=== PATIENT | female | born 1990 | race Caucasian/White ===

== ENCOUNTER 2025-01-10 01:00 | Day surgery (SDC) | payer OTHER, SELFPAY ==
[2025-01-01 11:43] VITALS: BMI 23.8
--- NOTE | 2025-01-01 11:50 | PC.NURSE ---
Report to the Outpatient Waiting Room, entrance under the green pavilion located off [facility], at time _0600_ on date _[phone]_. Planned Procedure Time: _0730_.? Time changes happen often and if your time is changed the preop area will call you the afternoon before. - You and your visitor will be asked to self-screen and do not enter if you have any COVID symptoms. Please call surgeon if you need to reschedule. - A mask is optional within the hospital at this time. Patients may have clear liquids (water, carbonated beverages, clear teas, apple juice) until 3 hours prior to surgery with a maximum of 20 ounces. - No food from midnight until time of surgery and no smoking, or chewing tobacco (or any form of nicotine). No chewing gum, candy or mints. Take only the following medications with a SIP of water on the morning of surgery: _None____ DO NOT STOP ANY OF YOUR OTHER PRESCRIPTION MEDICATIONS PRIOR TO SURGERY EXCEPT THE FOLLOWING Hold all vitamins and supplements for 3 days per anesthesiologist. Medications to discontinue per physician Date to take last khal___[phone]___ Please no make-up, nail omani, hairspray, perfume, deodorant, or body powder the day of surgery.? No jewelry (including any body piercings) or valuables the day of surgery, leave them at home.? Please take a shower or bath the night before, or the morning of, surgery with an antibacterial soap.? Wear comfortable, loose fitting clothing.? - Jewelry must be removed prior to entering the operating room.? Rings and piercings that are not removed may be cut off. - The hospital will not accept responsibility for valuables.? - Please leave all valuables, including medications, at home the day of surgery. If you are going home after surgery, a licensed test car driver must drive you home.? - NO public transportation without another adult if you receive anesthesia. - We recommend that an adult stay with you for 24 hours following discharge. - We also recommend that you do not drive, make important decision, drink alcoholic beverages, or take any drugs that were not prescribed by your health care provider for at least 24 hours after your discharge time. Follow any additional instructions given to you from your surgeon. Telephone instructions given to __Mimma__and asked if any additional questions and then verbalized understanding. Patient advised to call surgeon office or pre surgery nurse liaison [phone] if any additional questions.
[2025-01-10] VITALS (11 sets, daily range): BP systolic 108–131; BP diastolic 66–83; PULSE 83–108; RESP 16–20; TEMP 36.8–37.2; O2SAT 99–100
[2025-01-10] MEDS: LACTATED RINGERS 1,000 ML 30 ML IV CONT ×2 (06:30→08:29)
--- NOTE | 2025-01-10 06:52 | P.PNAN_ITS ---
Anes - Initial Pre Proc Eval Procedure: Operation Date: 01/10/25 07:30 Proposed Procedures p Bilateral Breast Augmentation - Michael Ocampo MD Date/Time: 01/10/25 06:52 Surgeon: Michael Ocampo MD Pre Op Diagnosis: micromastia Patient Data Age: 34 Gender: F Height: 1.65 m Weight: 65 kg Allergies Allergy/AdvReac Type Severity Reaction Status Date / Time No Known Allergies Allergy Verified 01/01/25 11:36 Home Medications ?Medication ?Instructions ?Recorded ?Confirmed ?Type cyanocobalamin (vitamin B-12) 5,000 mcg sublingual DAILY 01/01/25 01/01/25 History 5,000 mcg sublingual tablet (Vitamin B-12) ergocalciferol (vitamin D2) 1,250 50,000 unit PO WEEKLY 01/01/25 01/01/25 History mcg (50,000 unit) capsule iodoral 6.25 mg PO HS 01/01/25 01/01/25 History magnesium glycinate 100 mg (as 500 mg PO HS 01/01/25 01/01/25 History glycinate) tablet (Mag Glycinate) organ concentrates 80 mg capsule 160 mg PO DAILY 01/01/25 01/01/25 History valacyclovir 1 gram tablet 2,000 mg PO Q12H PRN cold sores 01/01/25 01/01/25 History Patient hx anesthesia problems: post op nausea/vomiting (Pt reports after colonoscopy at [place]. ) Family hx anesthesia problems: none Results Review: All pre-operative results and documents have been reviewed as part of the pre- operative evaluation. [facility] Social History Social History Smoking status: Never smoker Alcohol intake: current Living arrangements: with family Spiritual care concerns: No Anes - Eval Final PreProcedure Day of Procedure 01/10/25 06:52 Patient weight: normal Lungs: normal air movement Airway: Mallampati scale class II Neurological: alert and oriented Last oral intake: >/= 8 hours ASA classification: I Emergent: no Anesthetic plan: proceed Anesthesia type and monitoring: general LMA and standard monitoring Results Review: All pre-operative results and documents have been reviewed as part of the pre- operative evaluation. Healthy 34 yo female. Informed Consent: The patient's anesthetic plan and its attendant risks and benefits were discussed with the patient/family/POA. Questions were solicited and answers provided to the satisfaction of the patient/family/POA.
--- NOTE | 2025-01-10 07:14 | WPDHPUPDATE1 ---
History and Physical Update Update Date/Time: 01/10/25 07:14 History and Physical has been reviewed, including an updated exam of the patient. There are NO changes in the patient's condition. Risks, benefits, and alternatives have been discussed and questions answered. Patient agrees to proceed with procedure.
--- NOTE | 2025-01-10 07:15 | P.OP_ITS ---
Procedure Note - Detailed Date of Procedure 01/10/25 Pre-op Diagnosis micromastia Post-op Diagnosis Same Procedure Performed Bilateral breast augmentation mammaplasty Surgeon Michael Ocampo MD Anesthesia General Findings Bilateral Chirag Donato Cohesive 440cc Subfascial Right - REF# [id number] SN [id number] Left - REF# [id number] SN [id number] Description of Procedure She is here today for bilateral breast augmentation. Previously and again today the risks, benefits, alternatives were discussed in extensive detail. I wanted her to be very realistic about the risks involved as well as expectations. We discussed aftercare and what to monitor for. Made sure answered all of her questions to her satisfaction today and consent was obtained. Marked in the preoperative holding area with their verification. The patient was taken to the operating room placed supine on the operating table. Anesthesia was provided by anesthesiology. A surgical time-out was taken. We cleansed the skin and 1% lidocaine and 0.25% Marcaine with epinephrine was used anesthetize as a field block. She was prepped and draped in a standard sterile fashion. Tegaderm nipple Shah were placed. A 15 blade used to make an incision along the inframammary fold. Dissection was continued at 45 degree angle until the chest wall as identified. I elevated a subfascial pocket in the appropriate dimensions based on our preoperative planning for the implant. I then copiously irrigated with saline solution and verified a strict hemostasis. Next the use a triple antibiotic and Betadine containing solution to irrigate the pocket. I washed my gloves with the triple antibiotic and Betadine solution. We washed the implant immediately upon opening it with this solution and only opened it when we needed it. I used implant funnel and no-touch technique. The implant was introduced into the pocket using the funnel. Having verified positioning of the implant this was closed using 2-0 PDS followed by 3-0 Monocryl in a running subcuticular 4-0 Monocryl followed by tiss ue glue. Fluffs and surgical bra were placed. Patient was awoke and taken to PACU without difficulty. All instrument sponge counts were correct at the end of the case. Estimated Blood Loss 30 Drains No Packing No Pathology None sent Complications No immediate complications Condition Stable Disposition PACU
[2025-01-10] MEDS: TRANEXAMIC ACID 1,000MG/ISO100 1,000 MG/100 ML BAG 200 MG IVPB (07:25)
[2025-01-10] MEDS: ceFAZolin 2 GM/D5W 50 ML 2 GM/50 ML BAG IVPB (07:25)
[2025-01-10] MEDS: SCOPOLAMINE 1 MG PATCH 1 PATCH TRANSDERM (07:27)
[2025-01-10] MEDS: NACL 0.9% IRRIG POUR BOTTLE 900 ML, GENTAMICIN SULFATE INJ 160 MG, ceFAZolin 2 GM, POVI... IRRIGATION (07:47)
[2025-01-10] MEDS: LIDO 1%/EPINEPHRINE 1:100,000 50 ML VIAL 30 ML INFILTRATE (08:21)
[2025-01-10] MEDS: fentaNYL CITRATE INJ (*CRX) 100 MCG/2 ML VIAL 25 MCG IV PUSH ×4 (08:55→09:30)
[2025-01-10] MEDS: ONDANSETRON INJ 4 MG/2 ML VIAL IV PUSH (09:25)
[2025-01-10] MEDS: oxyCODONE HCL (*CRX) 5 MG TAB IR PO (09:50)
[2025-01-10] MEDS: diphenhydrAMINE HCl INJ 50 MG/ML VIAL 12.5 MG IV PUSH (10:08)
== END 2025-01-10 11:50 | disposition home or self-care (01) ==
PROVIDERS: PCP Family Medicine; Visit Provider Surgery Plastic and Reconstructive Surgery
PROC: (CPT 19325; principal; 2025-01-10 07:30)
DX: Z41.1 Encounter for cosmetic surgery (principal); N64.82 Hypoplasia of breast; E80.4 Gilbert syndrome; Z82.49 Family history of ischemic heart disease and other diseases of the circulatory system
CPT/HCPCS: 19325; A9270; J0690; J1100; J1200; J1580; J2003; J2004; J2250; J2405; J2704; J3010; J7120

== ENCOUNTER 2025-07-10 15:15 | Emergency (ER) | payer OTHER, SELFPAY ==
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
[2025-07-10 15:08] VITALS: BP 123/84; PULSE 113; RESP 12; O2SAT 100
[2025-07-10 15:24] VITALS: BP 123/84; PULSE 117; RESP 18; TEMP 36.8; O2SAT 100
[2025-07-10] MEDS: KETOROLAC 30 MG/ML VIAL (*BKC) IM (15:47)
[2025-07-10] MEDS: CYCLOBENZAPRINE HCL 10 MG TABLET PO (15:47)
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
[2025-07-10 15:55] LABS: BEDSIDEPREGUCG Negative (Negative)
--- OUTSIDE RECORDS SUMMARY | 2025-07-10 16:01 | XMS_ITS | Clinical Summary ---
Author Organization [facility] Address [address] [place] [address] Care Team Providers Care Lifestyle Consultant Name Role Phone Willem Soto MD Primary Care Provider [phone] Willem Soto MD Unavailable [phone] Allergies No known active allergies Medications levonorgestrel (MIRENA) IUD place 1 by Intrauterine route 0 0 5 Active semaglutide (OZEMPIC) 0.25 mg or 0.5 mg(2 mg/1.5 mL) pen injector injection Inject 0.25 mg under the skin every 7 days Active ergocalciferol (VITAMIN D) 50,000 unit capsule Take 1 capsule (50,000 Units total) by mouth 5 Active UNABLE TO FIND adrenal Activ e cyanocobalamin (Vitamin B-12) 100 mcg tabletIndicatio ns:Prevention of Vitamin B12 Deficiency Take 2 tablets (200 mcg total) by mouth daily Active hydrocortisone- pramoxine (PROCTOFOAM-HC) rectal foamIndications :Hemorrhoids,Pr uritus Ani Insert 1 applicator into the rectum 4 (four) times a day 360 g 2 5 Active valACYclovir (Valtrex) 1 gram tablet Take 2 tablets PO at onset of cold sore and then repeat in 12 hours. Total of 4 tablets. 30 tablet 5 Active Active Problems Problem Noted Date Diagnosed Date Annual physical exam 11/26/2024 Assessment & Plan (11/26/2024 10:01 AM INSPECTOR DIALS): In regard to health maintenance, WWE- UTD Influenza vaccine- Declined Eat a healthy diet: focus on lean meats and proteins, more fruits, vegetables and whole grains and low in sugars and fats. Limit red meat and avoid processed meat. Maintain a healthy weight; avoid being overweight. Aim for a normal body mass index (BMI) of 18.5-24.9. Help learning to eat healthier, we can set up appointment with button cutter/air quality technician. Have an active lifestyle, strive for 30 minutes of moderate exercise 5 times a week and strength or resistance training at least twice a week. Use broad-spectrum (UVA+UVB) sunscreen with SPF 30 or greater, is water resistant, limit time spent in the sun (10 am-4pm), wear hat, wear UV protective clothing, wear sunglasses. Never use a tanning bed. Skin that was irradiated may be more sensitive over your lifetime. Limit alcohol intake, 1 drink per day for a woman and 2 drinks per day for a man. Gilbert disease 11/30/2023 Assessment & Plan (11/26/2024 10:01 AM INSPECTOR DIALS): Continues to see Liver specialist PRN. Will do Hida scan to further evaluation liver. Assessment & Plan (11/30/2023 10:40 AM INSPECTOR DIALS): Patient with isolated hyperbilirubemia, predominantly indirect bilirubin. Total bili ranges from 1.2-1.7. Direct bilirubin was normal. US and CBC were normal. Findings consistent with Gilbert's syndrome. I will repeat HFP and fractionated bili. If direct bili is again normal, no further workup needed. I explained to patient that her bili may increase further in times of stress and illness. If she ever appears jaundiced or has any concerns, she is to contact us. For now, no further workup is needed. No treatment is indicated. Cervical high risk HPV (human papillomavirus) te st positive 02/15/2022 Acute left-sided low back pain with left-sided s ciatica 12/13/2021 Assessment & Plan (12/13/2021 11:38 AM INSPECTOR DIALS): Improving; will prescribe low dose prednisone. Aware not to take prednisone with ibuprofen. Discussed gentle stretching and ROM exercises, patient agreeable to PT. Recommended continued ms relaxer use as needed, suggested she take 5 mg nightly. Will continue to monitor. Records from [facility] requested. Encounter for screening for lipid disorder 12/13 Assessment & Plan (12/13/2021 11:38 AM INSPECTOR DIALS): Reviewed 12/2020 lipid panel. Will get fasting labs and notify patient as soon as results are received. BMI 23.0-23.9, adult 12/13/2021 Assessment & Plan (11/26/2024 10:06 AM INSPECTOR DIALS): Weight appropriate for patient. Assessment & Plan (12/13/2021 11:34 AM INSPECTOR DIALS): Discussed healthy diet and importance of regular physical activity. Hematochezia 05/04/2017 Hemorrhoids 05/04/2017 Assessment & Plan (11/26/2024 10:00 AM INSPECTOR DIALS): Will send in Protofoam for hemorrhoid pain PRN. Will continue to monitor. Has seen GI in the past. Advised to start a metamucil or Thompson daily to aid in preventing straining and constipation. 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 x7 days, dispense 14 with no refills; await culture and sensitivity and call office if symptoms persist beyond treatment. Burning with urination 03/24/201702/20 Assessment & Plan (03/26/2017 7:54 PM CDT): Urine dip done; 1+ leukocytes and trace blood; enc discontinuing soda and push water. Bacterial vaginosis 03/24/2017 02/21/20 22 Assessment & Plan (03/27/2017 5:45 PM CDT): Boric Acid capsules, 600 mg, insert 1 capsule per vagina at HS x7 nights; dispense 30 with no refills; call office if symptoms persist beyond treatment; (patient going on vacation to [facility] andwanted to take some extra capsules if possible so that is why 30 were dispensed). No pathologic diagnosis 02/22/201405/2020 Overview (01/11/2017): No diagnosis Encounters Date Type Department Care Team Description 06/13/2025 Results Follow-Up [facility] [address] [place] [address] Harjinder Longoria MD Pap and HPV, reflex to HPV Genotypes 06/10/2025 11:15 AM CDT Office Visit [facility] [address] [place] [address] Harjinder Longoria MD Well woman exam (Primary Dx); Encounter for Papanicolaou cervical smear to confirm findings of recent normal smear following initial abnormal smear; History of abnormal cervical Pap smear from Last 3 Months Immunizations Immunization Administration Dates Next Due Influenza, Unspecified 11/26/2024(Deferr ed: Patient Refused),06/09/2024(Deferred: Patient Refused),11/10/2022(Deferred: Patient Refused),09/26/2022(Deferred: Patient Refused),08/22/2022(Deferred: Patient Refused),06/09/2022(Deferred: Patient Refused),12/13/2021(Deferred: Patient Refused),06/09/2021(Deferred: Patient Refused),06/09/2021(Deferred: Patient Refused),12/14/2020(Deferred: Patient Refused),12/03/2019(Deferred: Patient Refused),10/09/2019(Deferred: Patient Refused),10/09/2018(Deferred: Patient Refused) Surgical History Surgery Date Site/Laterality Comments OTHER SURGICAL HISTORY Severe cervical dysplasia: Resolved spontaneously OTHER SURGICAL HISTORY 10/09/2011 - 10/08/2012 : OTHER SURGICAL HISTORY 10/09/2014 - 10/08/2015 : OTHER SURGICAL HISTORY 10/09/2014 - 10/08/2015 : SECTION INTRAUTERINE DEVICE INSERTION 03/16/2020 Removal and Insertion AUGMENTATION MAMMAPLASTY Within the breast tissue per patient. Medical History Medical History Date Comments Hx Other Medical 2009 Severe cervical dysplasia Hx Other Medical 2011 ; Outc ome: 39 week 7 lb(s) 5 oz Male Hx Other Medical ; Outc ome: 36W4D week 5lb(s) 9 oz Female Hx Other Medical ; Outc ome: 36W4D week 5lb(s) 7 oz Male Nausea Rectal bleeding Family History Medical History Relation Name Comments Crohn's disease Father Colon cancer Father's Brother Crohn's disease Father's Brother Heart disease Maternal Grandfather Kenneth Shafer Heart disease; Diabetes Other 1 Family history of Diabetes mellitus; Hypertension Other 2 Family history of Hypertension; Other Other 3 Family history of Hepatitis B; Hyperlipidemia Other 4 Family histor y of Hyperlipidemia; Heart disease Paternal Grandfather Kenneth Shafer Heart disease; Relation Name Status Comments Father Father's Brother Maternal Grandfather Kenneth Shafer Other 1 Other 2 Other 3 Other 4 Paternal Grandfather Kenneth Shafer Social History Tobacco Use Types Packs/Day Years Used Date Smoking Tobacco: Never Smokeless Tobacco: Never Tobacco Cessation:Counseling Given: Not Answered Alcohol Use Standard Drinks/Week Comments Yes 0 (1 standard drink = 0.6 oz pur e alcohol) PHQ-2 Answer Date Recorded PHQ-2 Total Score (If total score is 3 or more points, staff should administer the PHQ-9) 0 11/26/2024 Comments No Sex and Gender Information Value Date Recorded Sex Assigned at Not on file Legal Sex Female 7:00 AM INSPECTOR DIALS Gender Identity Not on file Sexual Orientation Not on file Obstetrics History Para Term AB IAB SAB Ectopic Multiple Livin g Live Births 2 2 1 1 0 0 0 1 3 2 Date Outcome GA Total Labor Labor/2nd/3rd Weight Sex Type Anes PTL Janice A1 A5 Name Clin 2 Term 39w 0d 3.317 kg (7 lb 5 oz) M Vag-S pont N Living Complications:None 5 36w 4d 2.523 kg (5 lb 9 oz) F Vag-S pont Y Living 5 36w 4d 2.466 kg (5 lb 7 oz) M CS-Un spec Last Filed Vital Signs Vital Sign Reading Time Taken Comments Blood Pressure 122/76 06/10/2025 11:13 AM CDT Pulse 93 11/26/2024 9:35 AM INSPECTOR DIALS Temperature 36.9 C (98.5 F) 03/31/2024 12:05 PM CDT Respiratory Rate 18 11/26/2024 9:35 AM INSPECTOR DIALS Oxygen Saturation 100% 11/26/2024 9:35 AM INSPECTOR DIALS Inhaled Oxygen Concentration - - Weight 70.8 kg (156 lb) 06/10/2025 11:13 AM CDT Height 165.1 cm (5' 5) 06/10/2025 11:13 AM CDT Body Mass Index 25.96 06/10/2025 11:13 AM CDT Plan of Treatment Health Maintenance Due Date Last Done Comments DTaP/Tdap/Td Vaccine (1 - Tdap) 2000 Hepatitis B Screening 2007 HPV Vaccines (1 - 3-dose SCDM series) 2016 Influenza Vaccine (#1) 2025 Depression Screening 11/26/2025 11/26/2024, 02/27/2023, 11/10/2022, Additional history exists Cervical Cancer Screening 06/10/20262024, 12/09/2024, 05/27/2024, Additional history exists Regular Well Visit/Exam 18-64 06/10/2026 06/10/2025, 11/26/2024, 05/27/2024, Additional history exists Hepatitis C Screening Completed 09/16/2014 Pneumococcal vaccine <65 Aged Out No longer eligible based on patient's age to complete this topic Varicella Vaccines Discontinued Procedures Procedure Name Priority Date/Time Associated Diagnosis Comments PAP AND HPV, REFLEX TO HPV GENOTYPES Routine 06/10/2025 12:10 PM CDT Well woman exam SERUM HEPATITIS C AB Routine 09/16/2014 7:40 AM INSPECTOR DIALS from Last 3 Months or Most Recently Relevant to Health Maintenance Results * Pap and HPV, reflex to HPV Genotypes (06/10/2025 12:10 PM CDT) CLINICAL INFORMATION: [facility] Comment:WELL WOMAN EXAM LMP [facility] Comment:IUD Previous Pap [facility] Comment:NONE GIVEN Prev. Bx [facility] Comment:NONE GIVEN SOURCE: [facility] Comment:Cervix, Endocervix Pap, specimen adequacy [facility] Comment: Satisfactory for evaluation. Endocervical/transformation zone component present. HPV interp [facility] Comment: Cytology Results: Negative for intraepithelial lesion or malignancy. COMMENTS [facility] Comment: This Pap test has been evaluated with the ThinPrep(R) Imaging System. Icd 9 Coder Que [facility] Comment: BKA, CT(ASCP) CT Screening Location: [place] [address] [place] [address] CLIA: [id number] Slide preparation performed at: [facility], [address] [place] [address], [address] CLIA: [id number] Review research assistant member [facility] Comment: KMS, CT(ASCP) CT Screening Location: [place] [address] [place] [address] CLIA: [id number] Slide preparation performed at: [facility], [address] [place] [address], [address] CLIA: [id number] Comment [facility] Comment: EXPLANATORY NOTE: The Pap is a screening test for cervical cancer. It is not a diagnostic test and is subject to false negative and false positive results. It is most reliable when a satisfactory sample, regularly obtained, is submitted with relevant clinical findings and history, and when the Pap result is evaluated along with historic and current clinical information. Human papillomavirus DNA, High Risk E6/E7 Not Detected NOT DETECTED [facility] Comment: Not Detected High Risk HPV types (16,18,31,33,35,39,45,51,52, 56,58,59,66,68) were not detected. Other HPV types which cause anogenital lesions may be present. The significance of the other types of HPV in malignant processes has not been established. Methodology: Real Time PCR Thin prep-Endocervica l 06/10/2025 12:10 PM CDT 06/11/2025 3:44 PM CDT Harjinder Longoria MD LAB CYTOLOGY ORDERABLES Fi nal Result [facility] [address] [place] [address] [facility] [address] [place] [address] * Serum Hepatitis C ab (09/16/2014 7:40 AM INSPECTOR DIALS) HCV ab NONREAC NONREAC HISTORICAL RESULTS Serum 09/16/2014 7:40 AM INSPECTOR DIALS Narrative HISTORICAL RESULTS - 09/18/2014 4:50 AM INSPECTOR DIALS HEP C EARLY ACUTE INFECTION (OCCURING DURING THE PRIOR 8-9 WEEKS) IS NOT RULED OUT BY THIS TEST. Harjinder Longoria MD LAB BLOOD ORDERABLES Final Result Performing Organization Address City/[facility] Co de Phone Number HISTORICAL RESULTS from Last 3 Months or Most Recently Relevant to Health Maintenance [place] [employer] [place] Advance Directives For more information, please contact: [phone] * Full Code (Latest Code Status on File) Date Activated Date Inactivated Comments 04/02/2018 1:12 PM 04/02/2018 3:36 PM * Full Code Date Activated Date Inactivated Comments 04/02/2018 11:42 AM 04/02/2018 1:12 PM * Full Code Date Activated Date Inactivated Comments 04/02/2018 11:42 AM 04/02/2018 11:42 AM Care Teams Lifestyle Consultant Relationship Specialty Start Date End Date Willem Soto MD [address] [place] [address] PCP - General 05/04/17 Willem Soto MD [address] [place] [address] 05/04/17
--- OUTSIDE RECORDS SUMMARY | 2025-07-10 16:01 | XMS_ITS | Encounter Summary ---
Author Organization [facility] Healthcare Address [address] [place] [address] Care Team Providers Care Compensation Coordinator Name Role Phone Willem Soto MD Primary Care Provider [phone] Willem Soto MD Unavailable [phone] Encounter Details Date Type Department Care Team (Late st Contact Info) Description 06/13/2025 Results Follow-Up [facility] [address] [place] [address] Harjinder Longoria MD [address] [place] [address] [address] [place] [address] Pap and HPV, reflex to HPV Genotypes Social History Tobacco Use Types Packs/Day Years Used Date Smoking Tobacco: Never Smokeless Tobacco: Never Alcohol Use Standard Drinks/Week Comments Yes 0 (1 standard drink = 0.6 oz pur e alcohol) PHQ-2 Answer Date Recorded PHQ-2 Total Score (If total score is 3 or more points, staff should administer the PHQ-9) 0 11/26/2024 Comments No Sex and Gender Information Value Date Recorded Sex Assigned at Not on file Legal Sex Female 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
[2025-07-10 16:03] LABS: Add Urine Microscopic? NO; Appearance Urine Clear (Clear); Glucose Urine UA Negative (Negative); Leukocyte Esterase Ur Negative LEU/UL (Negative); Nitrate Urine Negative (Negative); Specific Grav Ur 1.005 (1.001-1.035)
[2025-07-10 17:05] VITALS: BP 120/87; PULSE 81; RESP 20; O2SAT 100
[2025-07-10 17:17] VITALS: BP 111/78; PULSE 96; RESP 19; O2SAT 100
== END 2025-07-10 17:20 | disposition home or self-care (01) ==
PROVIDERS: Emergency Provider Nurse Practitioner Family; PCP Family Medicine
DX: M62.830 Muscle spasm of back (principal); V49.40XA Driver injured in collision with unspecified motor vehicles in traffic accident, initial encounter
CPT/HCPCS: 72100; 73502; 81003; 81025; 96372; 99284; A9270; J1885